=== PATIENT | female | born 1955 | race Caucasian/White ===

== ENCOUNTER → 2016-12-10 | Outpatient (CLI) | payer BC ==
--- NOTE | 2016-12-11 13:52 | REP ---
ORBITAL SERIES: HISTORY: Trauma. Swelling. Injury to orbit or eye. FINDINGS: Six views of the maxillofacial bones demonstrate normal intact bony orbital margins. Maxillary sinuses are clear. Nasal bone and inferior maxillary spine are intact. Zygomatic arches appear intact. No mandibular or maxillary fracture is seen. IMPRESSION: No fracture noted. Signed by Heriberto Marr MD 12/11/2016 03:04 P
== END ==
LOC: M WUC 10:38
PROVIDERS: ATTEND Physician Assistant
DX: S05.11XA Contusion of eyeball and orbital tissues, right eye, initial encounter (principal); X58.XXXA Exposure to other specified factors, initial encounter; Y92.89 Other specified places as the place of occurrence of the external cause; Y93.89 Activity, other specified; Y99.8 Other external cause status